=== PATIENT | male | born 1970 | race Caucasian/White ===

== ENCOUNTER 2017-07-06 10:45 | Observation (INO) | payer MEDICAID ==
[2017-07-06] MEDS ORDERED: Albuterol 2.5 MG/3 ML NEB.SOL* (0.083%) INH ONE (10:53)
[2017-07-06] MEDS ORDERED: Aspirin Low Dose CHEW TAB* 81 MG PO ONE (10:53)
[2017-07-06] MEDS ORDERED: diPHENhydraMINE IV* 50 MG in NS 0.9% 50 ML* 50 ML IVPB ONE (10:53)
[2017-07-06] MEDS ORDERED: Ondansetron INJ* 2 MG/ML VIAL IV ONE (10:53)
[2017-07-06] MEDS ORDERED: NS 0.9% 1000 ML* 3,000 ML IV ONE (10:53)
[2017-07-06] MEDS ORDERED: EPINEPHrine AMP 1 MG/ML IM ONE (10:53)
[2017-07-06] MEDS ORDERED: Famotidine IV* 10 MG/ML 2 ML (20 mg) IV SLOW PU ONE (10:53)
[2017-07-06 11:12] LABS: Hematocrit 45 % (42-52); Mean Corpuscular HGB Conc 33 g/dl (31-36); Mean Corpuscular Hemoglobin 29 pg (27-31); Mean Corpuscular Volume 88 fL (80-94); Mean Platelet Volume 8 um3 (7.4-10.4); Red Blood Count 5.17 10^6/ul (4.0-5.4); Red Cell Distribution Width 14 % (10.5-15); White Blood Count 11.4 10^3/ul (3.5-10.8)
[2017-07-06 11:14] LABS: Comments Flag Yes
[2017-07-06 11:15] LABS: Add Diff/Slide Review? Slide Review Added
--- NOTE | 2017-07-06 11:18 | RAD ---
HISTORY: Anaphylaxis COMPARISONS: None VIEWS:1: Single frontal portable view of the chest at 10:55 AM FINDINGS: LINES AND TUBES: None. CARDIOMEDIASTINAL SILHOUETTE: The cardiomediastinal silhouette is normal for portable technique. PLEURA: The costophrenic angles are sharp. No pleural abnormalities are noted. LUNG PARENCHYMA: The lung volumes are low. The lungs are clear accounting for the phase of respiration. ABDOMEN: The upper abdomen is clear. There is no subphrenic gas. BONES AND SOFT TISSUES: No bone or soft tissue abnormalities are noted. IMPRESSION: LOW LUNG VOLUMES. NO ACTIVE CARDIOPULMONARY DISEASE.
[2017-07-06 11:25] LABS: Troponin I 0.03 ng/mL (<0.04)
[2017-07-06 11:29] LABS: Albumin 3.6 g/dL (3.2-5.2); Calcium 9.5 mg/dL (8.6-10.3); EGFR African American 81.2 (>60); EGFR Non-African American 63.1 (>60); Globulin 2.8 g/dL (2-4); Potassium 3.2 mmol/L (3.5-5.0); Total Bilirubin 0.3 mg/dL (0.2-1.0); Total Protein 6.4 g/dL (6.4-8.9)
[2017-07-06] MEDS ORDERED: diPHENhydraMINE IV* 50 MG/ML 1 ml VIAL (BENADRYL) IV PRN (13:04)
[2017-07-06] MEDS ORDERED: EPINEPHrine AMP 1 MG/ML IM PRN (13:05)
[2017-07-06] MEDS ORDERED: Potassium Chlor TAB* 20 MEQ TAB.ER PO ONE (14:03)
[2017-07-06] MEDS ORDERED: NS 0.9% 1000 ML* 1,000 ML IV ONE (15:33)
--- NOTE | 2017-07-06 16:33 | HP ---
HOSPITAL MEDICINE HISTORY AND PHYSICAL: DATE OF ADMISSION: 07/06/17 PRIMARY CARE PHYSICIAN: None. ATTENDING PHYSICIAN: Yonny Somers MD * (dictation provided by Roseanne Perry NP ) CHIEF COMPLAINT: Bee sting. HISTORY OF PRESENT ILLNESS: Mr. Daniels is a 47-year-old male with a past medical history of ADHD and suspicion for allergies to BEE STINGS, who presents to the hospital today after anaphylactic reaction after a bee sting. Mr. Daniels states he has been in his normal state of health with no acute issues recently. 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 He was immediately concerned and pulled over. He got out of his truck and told his friends that he had been stung. He then collapsed to the ground. He does not remember much after that until coming into the emergency room. Per the report, the patient was given 4 doses of epinephrine on the way to the hospital as well as Decadron. He is feeling much better. He is asymptomatic. He has no chest pain, no shortness of breath, no throat tightness, no circumoral swelling. He has no hives even at this point. PAST MEDICAL HISTORY: ADHD. ALLERGIES: Allergic reaction to BEE STINGS. MEDICATIONS: Adderall p.r.n. FAMILY HISTORY: The patient reports his mother just related to lymphoma and his dad is alive and well. SOCIAL HISTORY: No prior alcohol, tobacco, or drug use. The patient lives with his , his healthcare proxy. She is in [place]. REVIEW OF SYSTEMS: A 14-point review of systems was completed with Mr. Daniels and all those not mentioned above were negative. PHYSICAL EXAMINATION GENERAL: Mr. Daniels is sitting up in the bed. He is in no acute distress. VITAL SIGNS: Temperature 97.6, heart rate 86, respiratory rate 15, O2 saturation 98% on room air, blood pressure 152/93. LUNGS: Clear to auscultation bilaterally with no accessory muscle use and good aeration. HEART: S1, S2, no murmur, rub, or gallop and regular. ABDOMEN: Soft, nontender with bowel sounds positive x4. EXTREMITIES: No cyanosis or edema. NEURO: He is alert. He is oriented x3. He moves all extremities equally. There is no facial asymmetry or focal weakness. Extraocular movements are intact. SKIN: Intact. He does have area of erythema to his right forearm near the elbow on the medial side. LABORATORY DATA/DIAGNOSTIC STUDIES: Sodium 139, potassium 3.2, chloride 104, serum bicarbonate 24, BUN 22, creatinine 1.22, glucose 184. WBC 11.4, hemoglobin 15.0, hematocrit 45, platelet count 373. Chest x-ray shows no acute process. EKG shows sinus rhythm with a heart rate in the 60s and no evidence of ischemia. ASSESSMENT: Mr. Daniels is a 47-year-old male with past medical history of attention deficit hyperactivity disorder and suspicion of allergy to BEES. He was stung today by a bee and had an anaphylactic reaction. PLAN: 1. Anaphylaxis: The patient has responded well to epinephrine x4 as well as Decadron. At this time, he is completely asymptomatic. Our plans are to monitor in the hospital overnight to observe for a potential biphasic reaction. If he has a reaction, we can provide Benadryl, famotidine, and epinephrine as needed. In addition, the patient will need to be discharged to home with an epinephrine pen as well as instructions on how to use one as he has never used this in the past. 2. ADHD. The patient uses Adderall on a p.r.n. basis, which I think is unusual for that drug. I plan to hold that while he is inpatient. 3. DVT prophylaxis with early mobility. 4. Disposition to telemetry floor for observation. TIME SPENT: Approximately 60 minutes were spent on the admission of this patient, more than half of the time was spent with the patient at the bedside reviewing the events leading up to this hospitalization, performing the physical examination, and reviewing the plan of care. ROSEANNE PERRY NP [id number]/[facility] #: [id number] SOL
--- NOTE | 2017-07-07 06:58 | PN ---
Progress Note - Progress Note Date of Service: 07/06/17 Note: Patient's trop lis to 0.07 after receiving epinephrine for an anaphylactic reaction to bee sting. Patient is chest pain free. Suspect related to demand ischemia but will order an echocardiogram for the AM.
[2017-07-07 08:42] VITALS: BP 133/67
--- NOTE | 2017-07-07 11:14 | DCNOTE ---
Patient seen this morning. Feeling well. No SOB, throat swelling, itching. 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 On exam, RRR, s1 and s2 present, no m/g/r, abd soft, NTND, BS+, no LE edema, no rash Echo done and read pending, patient does not want to stay for results. 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 Will notify him of any abnormal results on echo. Will make appointment for PCP in [place].
--- NOTE | 2017-07-07 11:25 | ECHO ---
Patient: NATALY CRAWLEY [facility] Rec#: [id number] : 1970 Date: 07/07/2017 Age: 47y Height: 177.8 cm / 70.0 in Weight: 106.59 kg / 234.9 lbs Sex: M BSA: 2.24 Room#: 439 Admit Date#: 07/06/2017 Type: Inpatient Referring: Kylee Perry NP Reading: Lucas Abbott MD Locomotive Inspector[facility] Tran[facility]hor[facility] Indication: Anaphylactic reaction to bee sting, elevated troponin level. BP: 118/57 HR: 63 Rhythm: NSR with PVCs Findings History: S/P anaphylactic reaction to bee sting 07/06/17. Technical Comments: The study quality is fair. The study is technically limited due to patient body habitus. Completed at 0855. Left Ventricle: The left ventricular chamber size is mildly dilated. Moderate concentric left ventricular hypertrophy is observed. There is global hypokinesis of the left ventricle with minor regional variation.The anterior and anteroseptal segments are best preserved. There is moderate to severely decreased left ventricular systolic function. The estimated ejection fraction is 30-35%. There is no consistent Doppler evidence of clinically significant diastolic dysfunction. Left Atrium: The left atrium is severely dilated. Right Ventricle: Moderator Band present. The right ventricle is moderately dilated. The right ventricular global systolic function is moderately reduced. Right Atrium: The right atrium is moderately dilated. Aortic Valve: The aortic valve is trileaflet. The aortic valve leaflets are mildly thickened. There is no evidence of aortic regurgitation. There is no evidence of aortic stenosis. Mitral Valve: The mitral valve leaflets are mildly thickened. There is mild mitral regurgitation. There is no evidence of mitral stenosis. Tricuspid Valve: The tricuspid valve leaflets are normal. There is mild tricuspid regurgitation. The right ventricular systolic pressure is estimated at 32 mmHg. No pulmonary hypertension is noted. There is no tricuspid stenosis. Pulmonic Valve: The pulmonic valve appears normal. There is trace to mild pulmonic regurgitation. There is no pulmonic stenosis. Pericardium: There is no significant pericardial effusion. Aorta: There is mild dilatation of the ascending aorta. There is no dilatation of the aortic arch. There is no dilation of the aortic root. Pulmonary Artery: The main pulmonary artery appears normal. Venous: The inferior vena cava appears normal in size. There is a greater than 50% respiratory change in the inferior vena cava dimension. Summary: There was not any prior study for comparison. Conclusions The study quality is fair. The left ventricular chamber size is mildly dilated. Moderate concentric left ventricular hypertrophy is observed. There is global hypokinesis of the left ventricle with minor regional variation.The anterior and anteroseptal segments are best preserved. There is moderate to severely decreased left ventricular systolic function. The estimated ejection fraction is 30-35%. The left atrium is severely dilated. The right ventricle is moderately dilated. The right ventricular global systolic function is moderately reduced. The right atrium is moderately dilated. There is mild mitral regurgitation. There is mild tricuspid regurgitation. The right ventricular systolic pressure is estimated at 32 mmHg. Measurements Name Value Normal Range RVIDd (AP) 2D 3.8 cm (0.9 - 2.6) RVDdMajor (2D) 5.6 cm (2.2 - 4.4) RAd ISD 4CH 5.6 cm (3.4 - 4.9) RA (A4C)W 4.5 cm (2.9 - 4.6) IVSd (2D) 1.4 cm (0.6 - 1) LVPWd (2D) 1.4 cm (0.6 - 1) LVIDd (2D) 5.5 cm (3.6 - 5.4) LVIDs (2D) 4.1 cm - LV FS (2D) 25 % (25 - 45) Aortic Annulus 2.6 cm (1.4 - 2.6) Ao root diameter (2D) 3.3 cm (2.1 - 3.5) Ascending Ao 3.5 cm (2.1 - 3.4) Aortic arch 2.8 cm (1.8 - 3.4) LA dimension (AP) 2D 4.6 cm (2.3 - 3.8) LAd ISD 4CH 5.7 cm (2.9 - 5.3) LA ISD 4CH W 5.4 cm (2.5 - 4.5) Name Value Normal Range LA ESV SP 4CH (A/L) 83 ml - LA ESV SP 2CH (A/L) 133 ml - LA ESV BP (A/L) 118 ml - LA ESV BP (A/L) index 52.49 ml/m2 - LA ESV SP 4CH (MOD) 74 ml - LA ESV SP 2CH (MOD) 131 ml - Name Value Normal Range MV E-wave Vmax 0.56 m/sec - MV deceleration time 202.3 msec - MV A-wave Vmax 0.32 m/sec - MV E:A ratio 1.7 ratio - LV septal e' Vmax 0.06 m/sec - LV lateral e' Vmax 0.11 m/sec - LV E:e' septal ratio 9.33 ratio - LV E:e' lateral ratio 5.09 ratio - Name Value Normal Range AV Vmax 1.12 m/sec - AV VTI 21.3 cm - AV peak gradient 4.99 mmHg - AV mean gradient 2.85 mmHg - LVOT Vmax 0.81 m/sec - LVOT VTI 15.93 cm - LVOT peak gradient 2.61 mmHg - LVOT mean gradient 1.5 mmHg - PAULINO Vmax 0.93 m/sec - Name Value Normal Range TR Vmax 2.7 m/sec - TR peak gradient 29 mmHg - RAP 3 mmHg - RVSP 32 mmHg - IVC diameter 1.8 cm - Name Value Normal Range PV Vmax 0.67 m/sec - PV peak gradient 1.77 mmHg -
[2017-07-07] MEDS ORDERED: Metoprolol Succinate XL TAB* 25 MG PO SCH (12:00)
--- NOTE | 2017-07-08 01:37 | DS ---
DISCHARGE SUMMARY: DATE OF ADMISSION: 07/06/17 DATE OF DISCHARGE: 07/07/17 PRIMARY CARE PHYSICIAN: He has no PCP. PRINCIPAL DISCHARGE DIAGNOSES: 1. Anaphylactic reaction to bee sting. 2. Cardiomyopathy. DISCHARGE MEDICATION REGIMEN: 1. Epinephrine. 2. EpiPen 0.3 mg IM once as needed for anaphylactic reaction. 3. Toprol-XL 25 mg by mouth daily. 4. Aspirin 81 mg by mouth daily. 5. Adderall 15 mg by mouth twice daily. STUDIES DONE DURING HOSPITALIZATION: Chest x-ray, impression: Low lung volumes , no active cardiopulmonary disease, transthoracic echocardiogram. Conclusions : Left ventricular chamber size mildly dilated, moderate concentric LVH, global hypokinesis of the left ventricle with minor regional variation, the anterior and anteroseptal segments are best preserved, there is [id number] decreased left ventricular systolic function with estimated ejection fraction of 30% to 35%, left atrium is severely dilated, right ventricle was moderately dilated, the right ventricular global systolic function is moderately reduced, right atrium is moderately dilated, there is mild mitral regurgitation, mild tricuspid regurgitation, the right ventricular systolic pressure is estimated at 32 mmHg. HISTORY OF PRESENT ILLNESS AND HOSPITAL SUMMARY: Please see the full history and physical by Kylee Perry NP for full details. Briefly, Mr. Daniels is a 47- year-old man with past medical history of ADHD, who presents to the hospital after anaphylactic reaction to bee sting. 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 Within a few minutes, he stated he felt tingly all over and he got out of the truck and collapsed to the ground. The next thing he remembers is waking up in the emergency department. He apparently received 3 to 4 doses of epinephrine on the way as well as Decadron. He had no further symptoms here in the hospital. No biphasic reaction. The patient was noted to have a mildly elevated troponin of 0.07 and due to this he underwent an echocardiogram, which showed a cardiomyopathy with a significantly decreased ejection fraction of 30% to 35%. I spoke about this at length with the patient, who seems resistant to new medications. 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 I stressed the importance of close outpatient followup with a primary doctor as well as with the occupational therapy aides teacher, which he states he will do. He was not willing to wait until an appointment could be made for him. I sent metoprolol and aspirin to his pharmacy in addition to EpiPen; however, he stated he would refuse the metoprolol because he does not like to take medications. I again stressed the importance of close outpatient followup. TIME SPENT: Total time spent on this discharge, 45 minutes. This is a summary of the hospitalization. Please see the full medical record for further details. [id number]/[facility] #: [id number] MTDD
== END 2017-07-07 12:24 | disposition home or self-care (01) ==
LOC: EDBD → ED 10:45 → MEDTELE 13:02
PROVIDERS: ADMIT Internal Medicine; ATTEND Hospitalist
DX: T63.441A Toxic effect of venom of bees, accidental (unintentional), initial encounter (principal); Y92.89 Other specified places as the place of occurrence of the external cause; I42.9 Cardiomyopathy, unspecified; I49.3 Ventricular premature depolarization; I34.0 Nonrheumatic mitral (valve) insufficiency; I37.1 Nonrheumatic pulmonary valve insufficiency; I36.1 Nonrheumatic tricuspid (valve) insufficiency; F90.9 Attention-deficit hyperactivity disorder, unspecified type
CPT/HCPCS: 36415; 71010; 80053; 83605; 84484; 85025; 85060; 93005; 93306; 96374; 96375; 99284; A9270-GY; G0378; J0171; J1200